=== PATIENT | female | born 1955 | race Caucasian/White ===

== ENCOUNTER → 2016-05-18 | Outpatient (CLI) | payer OTHER ==
[~2016-05-18] VITALS: Ht 160 cm; Wt 148.7 kg
[~2016-05-18] MED LIST: ACYC5OIN3 TD; ASPI81TA28 PO; CARV6.25 PO; CHOL100027 PO; HUMALOG LISPRO SQ; INSU1INJ15 SC; ISOS30TA3 PO; LOSA1TAB PO; NTRGSL/4 UT; SENNTAB23 PO; ZNTT/150 PO
[2016-05-18 13:00] VITALS: BP 118/83; PULSE 96; Ht 160 cm; Wt 148.7 kg
== END | disposition home or self-care (01) ==
LOC: C.NEUR 12:24
PROVIDERS: ATTEND Internal Medicine Pulmonary Disease
DX: G47.33 Obstructive sleep apnea (adult) (pediatric) (principal)

== ENCOUNTER → 2016-11-16 | Outpatient (CLI) | payer OTHER ==
[~2016-11-16] VITALS: Ht 160 cm; Wt 321.2 kg
[2016-11-16 12:59] VITALS: BP 132/81; PULSE 87; Ht 160 cm; Wt 321.2 kg
== END | disposition home or self-care (01) ==
LOC: C.NEUR 12:28
PROVIDERS: ATTEND Physician Assistant
DX: G47.33 Obstructive sleep apnea (adult) (pediatric) (principal); I25.10 Atherosclerotic heart disease of native coronary artery without angina pectoris; E11.9 Type 2 diabetes mellitus without complications; I10 Essential (primary) hypertension; E55.9 Vitamin D deficiency, unspecified

== ENCOUNTER → 2017-02-22 | Outpatient (CLI) | payer OTHER ==
--- NOTE | 2017-02-22 14:13 | MAMMOGRAPHY REPORT ---
BILATERAL DIGITAL SCREENING MAMMOGRAM TOMOSYNTHESIS WITH CAD: 02/22/2017 TECHNIQUE: Breast tomosynthesis in addition to standard 2D mammography was performed. Current study was also evaluated with a Computer Aided Detection (CAD) system. COMPARISON: Comparison is made to exams dated: 02/17/2015 mammogram, 02/22/2016 mammogram, 07/22/2013 mammogram, 09/25/2011 mammogram, 09/21/2010 mammogram, and 09/06/2009 mammogram - [facility]. BREAST COMPOSITION: The tissue of both breasts is almost entirely fatty. FINDINGS: No suspicious masses, calcifications, or areas of architectural distortion are noted in ei ther breast. There has been no significant interval change compared to prior exams. Bilateral benign -appearing calcifications are again noted. A biopsy marker clip is again noted in the left anterior breast. A few small round/oval circumscribed benign-appearing masses are seen bilaterally, best seen on the tomosynthesis images, which are considered benign given the multiplicity and bilaterality and likely represent cysts. IMPRESSION: ACR BI-RADS CATEGORY 2: BENIGN There is no mammographic evidence of malignancy. A 1 year screening mammogram is recommended. The pa tient will receive written notification of the results. Approximately 10% of breast cancers are not detected with mammography. A negative mammographic report should not delay biopsy if a clinically suggestive mass is present. Emily Savage M.D. ah/:02/22/2017 12:40:01 Geophysical Drafter: Fernanda SOLOMON(Maia)(M), [facility] letter sent: Normal 1/2 BI-RADS Code: ACR BI-RADS Category 2: Benign
== END | disposition home or self-care (01) ==
LOC: C.MAMM 09:02
PROVIDERS: ATTEND Family Medicine
DX: Z12.31 Encounter for screening mammogram for malignant neoplasm of breast (principal)

== ENCOUNTER → 2017-04-24 | Outpatient (CLI) | payer OTHER ==
--- NOTE | 2017-04-24 10:12 | DIAGNOSTIC IMAGING REPORT ---
ULTRASOUND ABDOMEN COMPLETE CLINICAL HISTORY: Generalized abdominal pain. COMPARISON STUDY: Abdominal CT dated 09/07/2015. TECHNIQUE: Real-time, grayscale, and color flow sonography of the abdomen was performed. Images are reviewed in the transverse and longitudinal planes. FINDINGS: Liver: The liver is enlarged and demonstrates heterogeneously increased echotexture consistent with hepatic steatosis. There is no intrahepatic biliary ductal dilatation. The main portal vein is patent. Gallbladder: The gallbladder is normal in appearance. No gallstones are identified. There is no gallbladder wall thickening or pericholecystic fluid. A sonographic Hardy's sign is reportedly absent. The common bile duct measures up to 0.5 cm in diameter. Pancreas: Visualized portions of the pancreatic head and body are normal in appearance. The splenic vein is patent. Spleen: The spleen is normal in size and echotexture, measuring 12.2 cm in length. Kidneys: The kidneys demonstrate cortical atrophy. There is no hydronephrosis. The right kidney measures 12.2 cm in length and the left kidney measures 11.6 cm in length. No shadowing calculi are identified. Abdominal vasculature: Visualized portions of the abdominal aorta and IVC are normal in appearance. Ascites: None. Right lower quadrant: No sonographic abnormality is identified in the right lower quadrant at the indicated site of interest. IMPRESSION: 1. No acute sonographic abnormality is identified. 2. Hepatomegaly and severe hepatic steatosis. Electronically signed by: Balta Shipley M.D. 04/24/2017 10:11 AM Dictated Date/Time: 04/24/2017 10:09 AM
--- NOTE | 2017-04-24 10:46 | DIAGNOSTIC IMAGING REPORT ---
THORACIC SPINE 3 VIEWS ROUTINE CLINICAL HISTORY: BILATERAL BACK PAIN COMPARISON STUDY: No previous studies for comparison. FINDINGS: There are moderate multilevel degenerative changes with prominent anterior and lateral osteophytic spurring. No acute fractures or traumatic subluxations are visualized. No destructive lesions are evident on conventional radiographic evaluation IMPRESSION: 1. Moderate multilevel degenerative change 2. No acute fractures identified 3. No destructive lesions are visualized on conventional radiographic imaging. Electronically signed by: Edson Kenney M.D. 04/24/2017 10:45 AM Dictated Date/Time: 04/24/2017 10:42 AM
--- NOTE | 2017-04-24 10:51 | DIAGNOSTIC IMAGING REPORT ---
LUMBAR SPINE 5 VIEWS CLINICAL HISTORY: Low back pain. FINDINGS: 5 views of the lumbar spine are correlated with abdominal CT dated 09/07/2015. The skeletal structures are osteopenic. There is no radiographic evidence of fracture or malalignment. Vertebral body height and alignment are maintained throughout the lumbar spine. There is straightening of the lumbar lordosis. Anterior osteophytes are seen throughout. The transverse and spinous processes appear intact. There is no evidence of spondylolysis. Facet arthropathy is seen in the mid to lower lumbar region. There is mild multilevel disc space narrowing, greatest at L2-L3 where there is associated endplate sclerosis. The visualized bony pelvis appears intact. Mild sclerotic change is present in the sacroiliac joints. There is atherosclerotic calcification of the abdominal aorta. No bowel obstruction is seen. Surgical clips are noted in the pelvis. IMPRESSION: 1. No acute bony abnormality is seen involving the lumbar spine. 2. Osteopenia and lumbosacral spondylosis as above. Dictated: 04/24/2017 10:40 AM Transcribed: 04/24/2017 10:51 AM [facility] Electronically signed by: Balta Shipley M.D. 04/24/2017 10:53 AM Dictated Date/Time: 04/24/2017 10:40 AM
== END | disposition home or self-care (01) ==
LOC: C.ULTR 09:19
PROVIDERS: ATTEND Nurse Practitioner
DX: R10.9 Unspecified abdominal pain (principal); M54.9 Dorsalgia, unspecified; K76.0 Fatty (change of) liver, not elsewhere classified; M85.88 Other specified disorders of bone density and structure, other site; M47.897 Other spondylosis, lumbosacral region; M89.8X8 Other specified disorders of bone, other site

== ENCOUNTER → 2017-05-30 | Outpatient (CLI) | payer OTHER ==
[~2017-05-30] VITALS: Ht 160 cm; Wt 144.1 kg
[2017-05-30 15:32] VITALS: BP 160/79; PULSE 81; Ht 160 cm; Wt 144.1 kg
== END | disposition home or self-care (01) ==
LOC: C.NEUR 14:50
PROVIDERS: ATTEND Physician Assistant
DX: R04.0 Epistaxis (principal); G47.33 Obstructive sleep apnea (adult) (pediatric); J31.0 Chronic rhinitis

== ENCOUNTER → 2017-11-28 | Outpatient (CLI) | payer OTHER ==
[~2017-11-28] VITALS: Ht 160 cm; Wt 138.0 kg
[~2017-11-28] MED LIST changes: +RANI150T85 PO; -ZNTT/150 PO
[2017-11-28 15:59] VITALS: BP 131/76; PULSE 75; Ht 160 cm; Wt 138.0 kg
== END | disposition home or self-care (01) ==
LOC: C.NEUR 15:19
PROVIDERS: ATTEND Physician Assistant
DX: G47.30 Sleep apnea, unspecified (principal)